=== PATIENT | male | born 1970 | race Caucasian/White ===

== ENCOUNTER 2016-11-05 21:00 | Emergency (ER) | payer SELFPAY ==
[2016-11-05 21:00] VITALS: BMI 26.1
[2016-11-05 21:35] VITALS: O2SAT 97
--- NOTE | 2016-11-05 22:45 | C.PDOC ---
History Of Present Illness Patient presents to the ER with a complaint of dizziness that worsens when he lays down or stands up. Denies fever, chills, nausea or vomiting. Time Seen by Provider: 11/05/16 22:44 Chief Complaint (Nursing): Headache History Per: Patient History/Exam Limitations: no limitations Onset/Duration Of Symptoms: Days Current Symptoms Are (Timing): Still Present Severity: None Pain Scale Rating Of: 0 Preceeding Symptoms: None Associated Symptoms: denies: Nausea, Vomiting, Other (Fever, chills) Recent travel outside of the [place]: No Past Medical History Reviewed: Historical Data, Nursing Documentation, Vital Signs Vital Signs: Last Vital Signs Temp 98.5 F 11/05/16 21:31 Pulse 69 11/05/16 21:31 Resp 20 11/05/16 21:31 BP 129/88 11/05/16 21:31 Pulse Ox 97 11/05/16 23:11 - Medical History PMH: Gastritis, GERD Surgical History: Endoscopy - [facility] Procedures COLONOSCOPY (10/11/12) Family History: States: No Known Family Hx - Social History Hx Tobacco Use: No Hx Alcohol Use: Yes Hx Substance Use: No - Immunization History Hx Tetanus Toxoid Vaccination: No Hx Influenza Vaccination: No Hx Pneumococcal Vaccination: No Review Of Systems Constitutional: Negative for: Fever, Chills Gastrointestinal: Negative for: Nausea, Vomiting Neurological: Positive for: Dizziness Physical Exam - Physical Exam Appears: Non-toxic Skin: Warm, Dry Ear(s): Bilateral: Normal Oral Mucosa: Moist Chest: Symmetrical, No Tenderness Cardiovascular: Rhythm Regular, No Murmur Respiratory: No Rales, No Rhonchi, No Wheezing Gastrointestinal/Abdominal: Soft, No Tenderness Neurological/Psych: Oriented x3, No Romberg, Other (No tinnitus, no focal deficits.) ED Course And Treatment O2 Sat by Pulse Oximetry: 97 (Room air) Pulse Ox Interpretation: Normal Progress Note: Head CT w/o contrast ordered. Antivert administered. Reevaluation Time: 00:06 Reassessment Condition: Improved Medical Decision Making Medical Decision Making: Upon provider reevaluation patient is feeling better, is medically stable, and requires no further treatment in the ED at this time. Patient will be discharged home with Rx for antivet, zofran . Counseling was provided and all questions were answered regarding diagnosis and need for follow up with dr bailon and dr thompson. There is agreement to discharge plan. Return if symptoms persist or worsen. Disposition Counseled Patient/Family Regarding: Studies Performed, Diagnosis, Need For Followup - Disposition Referrals: Calvin Bailon MD [Staff Provider] - Camilo Thompson MD [Staff Provider] - Disposition: HOME/ ROUTINE Disposition Time: 22:44 Condition: FAIR Prescriptions: Meclizine [Antivert] 25 mg PO QID #20 tab Ondansetron ODT [Zofran ODT] 1 odt PO BID PRN #6 odt PRN Reason: Nausea/Vomiting Instructions: Vertigo (ED), Dizziness (ED) Print Language: IRAQI - Clinical Impression Clinical Impression: Dizziness, Vertigo - Scribe Statement The provider has reviewed the documentation as recorded by the Scribjosette Coburn All medical record entries made by the Scribe were at my direction and personally dictated by me. I have reviewed the chart and agree that the record accurately reflects my personal performance of the history, physical exam, medical decision making, and the department course for this patient. I have also personally directed, reviewed, and agree with the discharge instructions and disposition.
[2016-11-06 00:20] VITALS: BP 132/82; PULSE 78; RESP 16; TEMP 98.2
--- NOTE | 2016-11-06 10:25 | CT ---
PROCEDURE: CT HEAD WITHOUT CONTRAST. HISTORY: dizziness COMPARISON: None available. TECHNIQUE: Axial computed tomography images were obtained through the head/brain without intravenous contrast. Radiation dose: Total exam DLP = 757.43 mGy-cm. This CT exam was performed using one or more of the following dose reduction techniques: Automated exposure control, adjustment of the mA and/or kV according to patient size, and/or use of iterative reconstruction technique. FINDINGS: HEMORRHAGE: No intracranial hemorrhage. BRAIN: No mass effect or edema. No atrophy or chronic microvascular ischemic changes. VENTRICLES: Unremarkable. No hydrocephalus. CALVARIUM: Unremarkable. PARANASAL SINUSES: Mild mucosal thickening seen within the ethmoid and frontal sinuses. Minimal mucosal thickening sphenoid sinus. MASTOID AIR CELLS: Unremarkable as visualized. No inflammatory changes. OTHER FINDINGS: None. IMPRESSION: No acute intracranial hemorrhage.
== END 2016-11-06 00:23 | disposition home or self-care (01) ==
LOC: C.ER 21:00
DX: R42 Dizziness and giddiness (principal)

== ENCOUNTER 2017-11-26 22:20 | Emergency (ER) | payer OTHER ==
[2017-11-26 22:20] VITALS: BMI 26.1
--- NOTE | 2017-11-26 23:00 | C.PDOC ---
Time Seen by Provider: 11/26/17 22:42 Chief Complaint (Nursing): Abdominal Pain Past Medical History Vital Signs: Last Vital Signs Temp 98.4 F 11/26/17 22:23 Pulse 65 11/26/17 22:23 Resp 16 11/26/17 22:23 BP 143/91 H 11/26/17 22:23 Pulse Ox 98 11/26/17 22:23 - Medical History PMH: Gastritis, GERD Denies: Chronic Kidney Disease Surgical History: Endoscopy - [facility] Procedures COLONOSCOPY (10/11/12) - Social History Hx Tobacco Use: No Hx Alcohol Use: Yes Hx Substance Use: No - Immunization History Hx Tetanus Toxoid Vaccination: No Hx Influenza Vaccination: No Hx Pneumococcal Vaccination: No ED Course And Treatment O2 Sat by Pulse Oximetry: 98 Disposition - Disposition
[2017-11-26] MEDS ORDERED: Aluminum Hydroxide/Magnesium Hydroxide Susp (30 mL) PO STA (23:23)
[2017-11-26] MEDS ORDERED: Alum-Mag Hydrox-Simethicone Susp (30 mL) ONE (23:37)
[2017-11-26] MEDS ORDERED: Alum-Mag Hydrox-Simethicone Susp (30 mL) PO STA (23:43)
[2017-11-26 23:49] LABS: BASO # 0.1 K/uL (0.0-0.2); BASO % 0.9 % (0.0-2.0); EOS # 0.3 K/uL (0.0-0.7); EOS % 5.6 % (0.0-4.0); HEMOGLOBIN 14.5 g/dL (12.0-18.0); LYMPH # 2.6 K/uL (1.0-4.3); LYMPH % 44.6 % (20.0-40.0); MEAN CELL VOLUME 81.5 fL (80.0-94.0); MEAN CORPUSCULAR HEMOGLOBIN 28.5 pg (27.0-31.0); MEAN PLATELET VOLUME 9.7 fL (7.2-11.7); MONO # 0.6 K/uL (0.0-0.8); MONO % 9.3 % (0.0-10.0); NEUT # 2.3 K/uL (1.8-7.0); NEUT % 39.6 % (50.0-75.0); RBC 5.09 Mil/uL (4.40-5.90); WHITE BLOOD COUNT 5.9 K/uL (4.8-10.8)
[2017-11-26 23:52] LABS: URINE BACTERIA RARE (<OCC); URINE BILIRUBIN NEGATIVE (NEGATIVE); URINE BLOOD NEGATIVE (NEGATIVE); URINE CLARITY Clear (Clear); URINE COLOR Straw (YELLOW); URINE GLUCOSE (UA) NORMAL (Normal); URINE LEUKOCYTE ESTERASE NEG Leu/uL (Negative); URINE PROTEIN NEGATIVE (NEGATIVE); URINE UROBILINOGEN NORMAL mg/dL (0.2-1.0)
[2017-11-26 23:57] LABS: INR 1.1; PROTHROMBIN TIME 12.5 SECONDS (9.7-12.2)
--- NOTE | 2017-11-27 | C.PDOC ---
History Of Present Illness 47 year old male presents to the ED c/o intermittent abdominal pain associated with nausea and vomiting for the past 3 weeks. Patient states his pain radiates towards his chest and throat. Patient describes his pain as "burning" and reports he has not seen a doctor in the past 2 years. Patient denies PMHx, weakness, numbness, diarrhea. Time Seen by Provider: 11/26/17 22:42 Chief Complaint (Nursing): Abdominal Pain History Per: Patient History/Exam Limitations: no limitations Onset/Duration Of Symptoms: Days Current Symptoms Are (Timing): Still Present Location Of Pain/Discomfort: Epigastric Radiation Of Pain To:: Chest Quality Of Discomfort: Burning Associated Symptoms: Nausea, Vomiting, Chest Pain. denies: Diarrhea, Urinary Symptoms Last Bowel Movement: Today Recent travel outside of the [place]: No Additional History Per: Patient Past Medical History Reviewed: Historical Data, Nursing Documentation, Vital Signs Vital Signs: Last Vital Signs Temp 98.5 F 11/27/17 00:49 Pulse 62 11/27/17 00:49 Resp 15 11/27/17 00:49 BP 128/79 11/27/17 00:49 Pulse Ox 98 11/27/17 04:37 - Medical History PMH: Gastritis, GERD Denies: Chronic Kidney Disease Surgical History: Endoscopy - [facility] Procedures COLONOSCOPY (10/11/12) Family History: States: Unknown Family Hx - Social History Hx Tobacco Use: No Hx Alcohol Use: Yes Hx Substance Use: No - Immunization History Hx Tetanus Toxoid Vaccination: No Hx Influenza Vaccination: No Hx Pneumococcal Vaccination: No Review Of Systems Constitutional: Negative for: Fever, Chills Cardiovascular: Positive for: Chest Pain. Negative for: Palpitations Respiratory: Negative for: Cough, Shortness of Breath Gastrointestinal: Positive for: Nausea, Vomiting, Abdominal Pain Musculoskeletal: Negative for: Back Pain Skin: Negative for: Rash Physical Exam - Physical Exam Appears: Non-toxic, No Acute Distress Skin: Normal Color, Warm, Dry Head: Atraumatic, Normacephalic Eye(s): bilateral: Normal Inspection Oral Mucosa: Moist Neck: Normal ROM, Supple Chest: Symmetrical Cardiovascular: Rhythm Regular Respiratory: Normal Breath Sounds, No Rales, No Rhonchi, No Wheezing Gastrointestinal/Abdominal: Soft, No Tenderness, No Guarding, No Rebound Extremity: Normal ROM, No Tenderness, No Swelling Neurological/Psych: Oriented x3, Normal Speech Gait: Steady ED Course And Treatment - Laboratory Results Result Diagrams: 11/26/17 23:47 11/26/17 23:47 ECG: Interpreted By Me, Viewed By Me ECG Rhythm: Sinus Rhythm ECG Interpretation: Normal Interpretation Of ECG: No acute changes, elevated T in lead V3 Rate From EC (BPM) O2 Sat by Pulse Oximetry: 98 - CT Scan/US CT neck soft tissue Other Rad Studies (CT/US): Read By Radiologist, Radiology Report Reviewed CT/US Interpretation: Name: JAYDE BONILLA Age: 47Years M Date: 2017. Requesting Physician: Lory Cannon PA-C : 1970. [facility] Procedure Ordered As Accession Number of. Images. CT NECK SOFT TISSUE. W. CT NECK SOFT TISSUE W. CONTRAST. [id number]. J. 320. Provided Clinical History: pain, r/o esophageal abnormalities. EXAM: CT Neck With Intravenous Contrast. CLINICAL HISTORY: 47 years old, male; Pain; Neck pain and throat pain; Additional info: Pain, R/O esophageal. abnormalities. TECHNIQUE: Axial computed tomography images of the neck with intravenous contrast. All CT scans at this. facility use at least one of these dose optimization techniques: automated exposure control; mA. and/or kV adjustment per patient size (includes targeted exams where dose is matched to clinical. indication); or iterative reconstruction. 320 images are submitted. Coronal and sagittal reformatted images were created and reviewed. COMPARISON: No relevant prior studies available. FINDINGS: Oropharynx: Unremarkable. No significant tonsillar enlargement. No peritonsillar abscess. Hypopharynx: Unremarkable. Larynx: Unremarkable. Normal epiglottis. Trachea: Unremarkable. Retropharyngeal space: Unremarkable. Submandibular/parotid glands: Unremarkable. Glands are normal in size. Thyroid: Mild prominence of thyroid gland. Bones/joints: No acute fracture. Soft tissues: Unremarkable. Vasculature: No acute findings. Lymph nodes: Submental lymph nodes. Bilateral cervical chain lymph nodes. Sinuses: Mild patchy sinus disease. Orbits: The globe and lens are intact. Lung apices: Unremarkable. IMPRESSION: JAYDE BONILLA | Preliminary Radiology. Report. CONFIDENTIALITY STATEMENT. This report is intended only for the use of the referring physician, and only in accordance with law, If you received this in error, call [phone]. Page 2 of 2. No acute findings. Thank you for allowing us to participate in the care of your patient. Dictated and Authenticated by: Niall Reyes MD. 11/27/2017 3:22 AM Eastern Time ( [place] & [place]) CT chest Other Rad Studies (CT/US): Read By Radiologist, Radiology Report Reviewed CT/US Interpretation: Name: JAYDE BONILLA Age: 47Years M Date: 2017. Requesting Physician: Lory Cannon PA-C : 1970. [facility] Procedure Ordered As Accession Number of Images. CT CHEST W CT CHEST W CONTRAST [id number]. Provided Clinical History: chest/neck burning, r/ o esophageal stricture. EXAM: CT Chest With Intravenous Contrast. CLINICAL HISTORY: 47 years old, male; Pain; Chest pain; Additional info: Chest/neck burning, R/O esophageal stricture. TECHNIQUE: Axial computed tomography images of the chest with intravenous contrast. All CT scans at this. facility use at least one of these dose optimization techniques: automated exposure control; mA. and/or kV adjustment per patient size (includes targeted exams where dose is matched to clinical. indication); or iterative reconstruction. 619 images are submitted.Sagittal , axial and coronal MPR. reformatted images are submitted. Axial images are submitted in high resolution protocol reformatted. images in lung windows. COMPARISON: CR - CHEST ONE VIEW 12:47. FINDINGS: Lungs: Bibasilar trace hazy patchy nonspecific infiltrates are present, consistent with atelectasis or. pneumonia.Mild parabronchial cuffing, which can be seen with bronchitis, reactive airway disease or. viral pneumonitis versus mild failure. The visualized portions of major airways are patent. Pleural space: Unremarkable. No pneumothorax. No significant effusion. Heart: Unremarkable. No cardiomegaly. No significant pericardial effusion. Mediastinum: Nonspecific esophageal wall thickening which could be due to underdistention versus. nonspecific esophagitis. If clinical concern for stricture remains gastroenterology evaluation can be. helpful. Small hiatal hernia. Bones/joints: Unremarkable. No acute fracture. No dislocation. Soft tissues: Unremarkable. Vasculature: Bovine aortic arch. No thoracic aortic aneurysm. Lymph nodes: Unremarkable. No enlarged lymph nodes. IMPRESSION: 1. Bibasilar trace hazy patchy nonspecific infiltrates are present, consistent with atelectasis or. pneumonia.Mild parabronchial cuffing, which can be seen with bronchitis, reactive airway disease or. viral pneumonitis versus mild failure. JAYDE BONILLA | Preliminary Radiology. Report. CONFIDENTIALITY STATEMENT. This report is intended only for the use of the referring physician, and only in accordance with law, If you received this in error, call [phone]. Page 2 of 2. 2. Nonspecific esophageal wall thickening which could be due to underdistention versus nonspecific. esophagitis. If clinical concern for stricture remains gastroenterology evaluation can be helpful. Thank you for allowing us to participate in the care of your patient. Dictated and Authenticated by: Niall Reyes MD. 3:26 AM Eastern Time ([place] & [place]) Progress Note: Plan: - EKG. - CXR. - Labs. - Maalox 30 ml PO. - Protonix 40 mg IVP. - UA. Plan was to keep patient for observation. Hospitalist search engine optimization analyst was called at 00:30. came down to ED, evaluated patient and requested chest and neck CT with IV contrast. CT report came back at 3:25 am. Case was again discussed with who sts he will review CT by himself and will call back. 4:05 am. Case was again discussed with who sts he still reviewing CT and will come down to ED. Disposition - Disposition Referrals: [facility] at [facility] [Outside] Disposition: HOME/ ROUTINE Disposition Time: 04:41 Condition: STABLE Additional Instructions: Follow up with PMD within 1-2 days. Return to ED if feel worse. Prescriptions: Omeprazole 40 mg PO DAILY #30 capsule. Instructions: Acid Reflux (Gastroesophageal Reflux Disease), Adult (DC) Forms: yeppt (H[place] Konger) - Clinical Impression Clinical Impression: GERD (gastroesophageal reflux disease) - PA / HOME ENERGY AUDITOR / Resident Statement MD/DO has reviewed & agrees with the documentation as recorded. - Scribe Statement The provider has reviewed the documentation as recorded by the Scribe Jason Felix All medical record entries made by the Scribe were at my direction and personally dictated by me. I have reviewed the chart and agree that the record accurately reflects my personal performance of the history, physical exam, medical decision making, and the department course for this patient. I have also personally directed, reviewed, and agree with the discharge instructions and disposition.
[2017-11-27 00:01] LABS: ALB/GLOB RATIO 1.2 (1.0-2.1); ALBUMIN 4.1 g/dL (3.5-5.0); ALT/SGPT 56 U/L (21-72); AST/SGOT 28 U/L (17-59); BLOOD UREA NITROGEN 17 mg/dL (9-20); CALCIUM 8.8 mg/dl (8.6-10.4); GFR AFRICAN-AMERICAN > 60; GFR NON-AFRICAN AMERICAN > 60; LIPASE 80 U/L (23-300)
[2017-11-27 00:13] LABS: CK-MB 1.13 ng/mL (0.0-3.38)
[2017-11-27] MEDS ORDERED: Iodixanol 320 MG/ML 100 ML BOTTLE IV ONE (01:42)
--- NOTE | 2017-11-27 04:23 | CP.PCM.CON ---
<Kasia Damon - Last Filed: 11/27/17 04:29> History of Present Illness - History of Present Illness History of Present Illness: Consult Patient is a 47 year old male with a history of GERD/gastritis, who presents to the ED with complaints of epigastric abdominal pain that radiates up to the chest and throat/neck. He has a 2 year history of gerd/gastritis and has had a work up with GI, Dr. Larios in the past. Patient says his discomfort has increased in intensity over the past 2-3 weeks. He admits to increasing milk and acidic food consumption recently. He says his symptoms increase at night, he has indigestion and belching several hours after a meal, and occasionally has an acidic taste in his mouth. He takes mylanta which helps relieve his symptoms. Patient otherwise feels well and denies remaining review of systems. PMD: none PMHx: gerd/gastritis SurgHx: none FamHx: Mother- HTN, Father- DM SocHx: denies tobacco and drug use; social etoh; lives with partner, Keira, in [place]. Works in [employer] Allergies: NKDA Medications: mylanta prn Review of Systems - Constitutional Constitutional: absent: Chills, Fever, Headache - EENT Ears: absent: Dizziness Additional comments: Acidic taste in mouth - Cardiovascular Cardiovascular: absent: Chest Pain, Chest Pain with Activity, Dyspnea, Leg Edema , Palpitations, Rapid Heart Rate - Respiratory Respiratory: absent: Cough, Dyspnea - Gastrointestinal Gastrointestinal: Abdominal Pain (epigastris radiating to chest and throat), Belching, Dyspepsia, Heartburn. absent: Constipation, Diarrhea, Nausea, Vomiting - Genitourinary Genitourinary: absent: Dysuria - Neurological Neurological: absent: Dizziness, Headaches Past Patient History - Infectious Disease Hx of Infectious Diseases: None - Past Medical History & Family History Past Medical History?: No - Past Social History Smoking Status: Never Smoked - CARDIAC Hx Cardiac Disorders: No - PULMONARY Hx Respiratory Disorders: No - NEUROLOGICAL Hx Neurological Disorder: No - HEENT Hx HEENT Problems: No - RENAL Hx Chronic Kidney Disease: No - ENDOCRINE/METABOLIC Hx Endocrine Disorders: No - HEMATOLOGICAL/ONCOLOGICAL Hx Blood Disorders: No - INTEGUMENTARY Hx Dermatological Problems: No - MUSCULOSKELETAL/RHEUMATOLOGICAL Hx Musculoskeletal Disorders: No - GASTROINTESTINAL Hx Gastritis: Yes - GENITOURINARY/GYNECOLOGICAL Hx Genitourinary Disorders: No - PSYCHIATRIC Hx Substance Use: No - SURGICAL HISTORY Hx Surgeries: Yes - ANESTHESIA Hx Anesthesia: Yes Hx Anesthesia Reactions: No Meds Allergies/Adverse Reactions: Allergies Allergy/AdvReac Type Severity Reaction Status Date / Time No Known Allergies Allergy Verified 11/26/17 22:25 Physical Exam - Constitutional Appears: No Acute Distress - Head Exam Head Exam: ATRAUMATIC, NORMAL INSPECTION, NORMOCEPHALIC - Eye Exam Eye Exam: EOMI, Normal appearance, PERRL - ENT Exam ENT Exam: Mucous Membranes Moist - Respiratory Exam Respiratory Exam: Clear to Auscultation Bilateral, NORMAL BREATHING PATTERN. absent: Rales, Rhonchi, Wheezes, Respiratory Distress - Cardiovascular Exam Cardiovascular Exam: REGULAR RHYTHM, +S1, +S2 - GI/Abdominal Exam GI & Abdominal Exam: Normal Bowel Sounds, Soft. absent: Tenderness - Extremities Exam Extremities exam: Positive for: normal inspection, pedal pulses present. Negative for: pedal edema, tenderness - Neurological Exam Neurological exam: Alert, Oriented x3 - Psychiatric Exam Psychiatric exam: Normal Affect, Normal Mood - Skin Skin Exam: Dry, Intact, Normal Color, Warm Results - Vital Signs Recent Vital Signs: Last Vital Signs Temp 98.5 F 11/27/17 00:49 Pulse 62 11/27/17 00:49 Resp 15 11/27/17 00:49 BP 128/79 11/27/17 00:49 Pulse Ox 98 11/27/17 04:15 - Labs Result Diagrams: 11/26/17 23:47 11/26/17 23:47 Labs: Laboratory Results - last 24 hr 11/26/17 11/26/17 11/26/17 23:47 23:47 23:47 WBC 5.9 RBC 5.09 Hgb 14.5 Hct 41.5 MCV 81.5 MCH 28.5 MCHC 35.0 RDW 13.0 Plt Count 189 MPV 9.7 Neut % (Auto) 39.6 L Lymph % (Auto) 44.6 H [place] % (Auto) 9.3 Eos % (Auto) 5.6 H Baso % (Auto) 0.9 Neut # (Auto) 2.3 Lymph # (Auto) 2.6 [place] # (Auto) 0.6 Eos # (Auto) 0.3 Baso # (Auto) 0.1 PT 12.5 H INR 1.1 APTT 35 H Sodium 142 Potassium 3.7 Chloride 103 Carbon Dioxide 28 Anion Gap 14 BUN 17 Creatinine 1.0 Est GFR ( Amer) > 60 Est GFR (Non-Af Amer) > 60 Random Glucose 97 Calcium 8.8 Total Bilirubin 0.9 AST 28 ALT 56 Alkaline Phosphatase 111 Total Creatine Kinase 142 CK-MB (Mass) 1.13 Troponin I < 0.0120 Total Protein 7.5 Albumin 4.1 Globulin 3.4 Albumin/Globulin Ratio 1.2 Lipase 80 Urine Color Urine Clarity Urine pH Ur Specific [place] Urine Protein Urine Glucose (UA) Urine Ketones Urine Blood Urine Nitrate Urine Bilirubin Urine Urobilinogen Ur Leukocyte Esterase Urine WBC (Auto) Ur Transition Epith Cell Urine Bacteria 11/26/17 23:47 WBC RBC Hgb Hct MCV MCH MCHC RDW Plt Count MPV Neut % (Auto) Lymph % (Auto) [place] % (Auto) Eos % (Auto) Baso % (Auto) Neut # (Auto) Lymph # (Auto) [place] # (Auto) Eos # (Auto) Baso # (Auto) PT INR APTT Sodium Potassium Chloride Carbon Dioxide Anion Gap BUN Creatinine Est GFR ( Amer) Est GFR (Non-Af Amer) Random Glucose Calcium Total Bilirubin AST ALT Alkaline Phosphatase Total Creatine Kinase CK-MB (Mass) Troponin I Total Protein Albumin Globulin Albumin/Globulin Ratio Lipase Urine Color Straw Urine Clarity Clear Urine pH 6.0 Ur Specific [place] 1.011 Urine Protein Negative Urine Glucose (UA) Normal Urine Ketones Negative Urine Blood Negative Urine Nitrate Negative Urine Bilirubin Negative Urine Urobilinogen Normal Ur Leukocyte Esterase Neg Urine WBC (Auto) < 1 Ur Transition Epith Cell < 1 Urine Bacteria Rare Assessment & Plan (1) GERD (gastroesophageal reflux disease) Assessment and Plan: Patient should be discharged with a prescription for a PPI and should follow up with PMD and GI upon discharge from ED. Chest/Neck CT done- no acute findings. Status: Acute <Anjum Martin P - Last Filed: 11/27/17 06:20> Results - Vital Signs Recent Vital Signs: Last Vital Signs Temp 98.2 F 11/27/17 04:53 Pulse 64 11/27/17 04:53 Resp 20 11/27/17 04:53 BP 109/60 11/27/17 04:53 Pulse Ox 99 11/27/17 04:53 - Labs Result Diagrams: 11/26/17 23:47 11/26/17 23:47 Labs: Laboratory Results - last 24 hr 11/26/17 11/26/17 11/26/17 23:47 23:47 23:47 WBC 5.9 RBC 5.09 Hgb 14.5 Hct 41.5 MCV 81.5 MCH 28.5 MCHC 35.0 RDW 13.0 Plt Count 189 MPV 9.7 Neut % (Auto) 39.6 L Lymph % (Auto) 44.6 H [place] % (Auto) 9.3 Eos % (Auto) 5.6 H Baso % (Auto) 0.9 Neut # (Auto) 2.3 Lymph # (Auto) 2.6 [place] # (Auto) 0.6 Eos # (Auto) 0.3 Baso # (Auto) 0.1 PT 12.5 H INR 1.1 APTT 35 H Sodium 142 Potassium 3.7 Chloride 103 Carbon Dioxide 28 Anion Gap 14 BUN 17 Creatinine 1.0 Est GFR ( Amer) > 60 Est GFR (Non-Af Amer) > 60 Random Glucose 97 Calcium 8.8 Total Bilirubin 0.9 AST 28 ALT 56 Alkaline Phosphatase 111 Total Creatine Kinase 142 CK-MB (Mass) 1.13 Troponin I < 0.0120 Total Protein 7.5 Albumin 4.1 Globulin 3.4 Albumin/Globulin Ratio 1.2 Lipase 80 Urine Color Urine Clarity Urine pH Ur Specific [place] Urine Protein Urine Glucose (UA) Urine Ketones Urine Blood Urine Nitrate Urine Bilirubin Urine Urobilinogen Ur Leukocyte Esterase Urine WBC (Auto) Ur Transition Epith Cell Urine Bacteria 11/26/17 23:47 WBC RBC Hgb Hct MCV MCH MCHC RDW Plt Count MPV Neut % (Auto) Lymph % (Auto) [place] % (Auto) Eos % (Auto) Baso % (Auto) Neut # (Auto) Lymph # (Auto) [place] # (Auto) Eos # (Auto) Baso # (Auto) PT INR APTT Sodium Potassium Chloride Carbon Dioxide Anion Gap BUN Creatinine Est GFR ( Amer) Est GFR (Non-Af Amer) Random Glucose Calcium Total Bilirubin AST ALT Alkaline Phosphatase Total Creatine Kinase CK-MB (Mass) Troponin I Total Protein Albumin Globulin Albumin/Globulin Ratio Lipase Urine Color Straw Urine Clarity Clear Urine pH 6.0 Ur Specific [place] 1.011 Urine Protein Negative Urine Glucose (UA) Normal Urine Ketones Negative Urine Blood Negative Urine Nitrate Negative Urine Bilirubin Negative Urine Urobilinogen Normal Ur Leukocyte Esterase Neg Urine WBC (Auto) < 1 Ur Transition Epith Cell < 1 Urine Bacteria Rare Attending/Attestation - Attestation I have personally seen and examined this patient.: Yes I have fully participated in the care of the patient.: Yes I have reviewed all pertinent clinical information: Yes Notes (Text): 11/27/17 06:05 Clinically GERD, with prior history and endoscopy 2 yrs back with non compliance with PPI, recurrence of symptoms for 2-3 wks with gradual worsening, no exertional symptoms as patient is active in work out and soccer, with no complains, normal ekg during symptoms, negative troponin. CT done to r/o aclasia and obstruction due to h/o regurgitation of food > 12 hr old, which shows mild aspiration pneumonitis, esophagitis. Recommend to start PPI regularly for > 1-2 months, arrange primary care and gi f/u as outpatient meanwhile, come to er incase of worsening. D/w er.
[2017-11-27 04:55] VITALS: BP 109/60; PULSE 64; RESP 20; TEMP 98.2
[2017-11-27 06:35] VITALS: O2SAT 98
--- NOTE | 2017-11-27 11:05 | CT ---
PROCEDURE: CT NECK WITH CONTRAST HISTORY: pain, r/o esophageal abnormalities COMPARISON: None TECHNIQUE: CT of the neck with intravenous contrast. Coronal and sagittal reformats generated. Intravenous contrast dose: 100 mL Visipaque Radiation dose: DLP 357.68 mGy-cm This CT exam was performed using one or more of the following dose reduction techniques: Automated exposure control, adjustment of the mA and/or kV according to patient size, and/or use of iterative reconstruction technique. FINDINGS: NASOPHARYNX: Within normal limits. SUPRAHYOID NECK: There is no mass or abnormal enhancement in the oropharynx, oral cavity, parapharyngeal space and retropharyngeal space. INFRAHYOID NECK: There is no mass or abnormal enhancement in the larynx, hypopharynx, and supraglottic space. Vocal cords intact. MASS: None. GLANDS: Parotid and submandibular glands unremarkable. Normal size thyroid gland, without nodule. LYMPH NODES: Prominent bilateral cervical chain lymph nodes are likely reactive in etiology. CERVICAL SPINE: No fracture or focal lesion. VASCULAR STRUCTURES: Unremarkable. OTHER FINDINGS: None. IMPRESSION: No mass or abnormal enhancement in the soft tissues of the neck. Please note evaluation of the esophagus is limited on CT examination allowing for this, no evidence for esophageal dilatation or bulky mass. A preliminary report was provided by [facility].
--- NOTE | 2017-11-27 11:13 | CT ---
PROCEDURE: CT Chest with contrast HISTORY: chest/neck burning, r/o esophageal stricture COMPARISON: None. TECHNIQUE: Contiguous axial images were obtained through the chest with intravenous contrast enhancement. Sagittal and coronal reconstructions were performed. IV contrast: 100 mL Visipaque Radiation dose (DLP): 615.75 mGy-cm. This CT exam was performed using one or more of the following dose reduction techniques: Automated exposure control, adjustment of the mA and/or kV according to patient size, and/or use of iterative reconstruction technique. FINDINGS: LUNGS: The lungs are well inflated. There is dependent atelectasis in the posterior lungs. No suspicious nodule, mass or consolidation. There are no endobronchial lesions. MEDIASTINUM: The aorta is normal in caliber. No aneurysm or dissection. Normal sized heart. Main pulmonary artery unremarkable. No vascular congestion. No lymphadenopathy. There is apparent mild thickening of the esophageal wall. PLEURA: No pleural fluid. No pneumothorax. BONES: No fracture. No destructive lesion. Within normal limits for the patient's age. UPPER ABDOMEN: No cholelithiasis. The adrenal glands are normal. Few small low-attenuation lesions were in the right hepatic lobe are too small to characterize by CT criteria. OTHER FINDINGS: None. IMPRESSION: No acute findings. Apparent mild thickening of the esophageal wall is nonspecific and could be related to underdistention however nonspecific esophagitis is also a consideration. If clinically indicated, correlation with EGD may be performed. A preliminary report was provided by [facility].
--- NOTE | 2017-11-27 12:45 | RAD ---
PROCEDURE: CHEST RADIOGRAPH, 1 VIEW HISTORY: epigastric pain COMPARISON: 09/14/2015. FINDINGS: LUNGS: The lungs are well inflated and clear. PLEURA: No pneumothorax or pleural fluid seen. CARDIOVASCULAR: Normal. OSSEOUS STRUCTURES: No significant abnormalities. VISUALIZED UPPER ABDOMEN: Normal. OTHER FINDINGS: None. IMPRESSION: No active pulmonary disease.
--- NOTE | 2017-11-30 22:36 | CARD ---
APPROVED REPORT EKG Measurement Heart [id number] <Conclusion> Normal sinus rhythm Normal ECG
== END 2017-11-27 04:55 | disposition home or self-care (01) ==
LOC: C.ER 22:20
DX: K21.9 Gastro-esophageal reflux disease without esophagitis (principal)
CPT/HCPCS: 70491; 71045; 71260; 80053; 81001; 82550; 82553; 83690; 84484; 85025; 85610; 85730; 93005; 96374; 99285; C9113; Q9967

== ENCOUNTER 2018-03-15 21:48 | Emergency (ER) | payer OTHER ==
[2018-03-15 21:48] VITALS: BMI 26.1
[2018-03-15 22:02] VITALS: BP 151/89; PULSE 81; RESP 19; TEMP 99.3; O2SAT 97
--- NOTE | 2018-03-15 22:12 | C.PDOC ---
History Of Present Illness 48 year old male complains of itchy rash to penile and genital area for 3 weeks. He plays soccer and has had fungl infections in the past. He used OTC antifungal cream with no relief. Time Seen by Provider: 03/15/18 22:06 Chief Complaint (Nursing): Male Genitourinary History Per: Patient History/Exam Limitations: no limitations Onset/Duration Of Symptoms: Days Recent travel outside of the [place]: No Additional History Per: Patient Past Medical History Reviewed: Historical Data, Nursing Documentation, Vital Signs Vital Signs: Last Vital Signs Temp 99.3 F 03/15/18 21:59 Pulse 81 03/15/18 21:59 Resp 19 03/15/18 21:59 BP 151/89 H 03/15/18 21:59 Pulse Ox 97 03/15/18 21:59 - Medical History PMH: Gastritis, GERD Denies: Chronic Kidney Disease Surgical History: Endoscopy - [facility] Procedures COLONOSCOPY (10/11/12) Family History: States: Unknown Family Hx - Social History Hx Tobacco Use: No Hx Alcohol Use: No Hx Substance Use: No - Immunization History Hx Tetanus Toxoid Vaccination: No Hx Influenza Vaccination: No Hx Pneumococcal Vaccination: No Review Of Systems Constitutional: Negative for: Fever, Chills Cardiovascular: Negative for: Chest Pain Gastrointestinal: Negative for: Nausea, Vomiting, Abdominal Pain Genitourinary: Positive for: Rash. Negative for: Dysuria, Hematuria Neurological: Negative for: Weakness, Numbness Physical Exam - Physical Exam Appears: Non-toxic, No Acute Distress Skin: Normal Color, Warm, Dry Head: Atraumatic, Normacephalic Eye(s): bilateral: Normal Inspection Chest: Symmetrical Respiratory: No Wheezing Male Genital: No Inguinal Tenderness, No Scrotal Swelling, Circumcised, Other (penile shaft and scrotal area with erythematous well demarcated rash and white film. No vesicles) Extremity: Normal ROM Neurological/Psych: Oriented x3, Normal Speech Gait: Steady ED Course And Treatment O2 Sat by Pulse Oximetry: 97 (ON RA) Pulse Ox Interpretation: Normal Medical Decision Making Medical Decision Making: Impression: Tinea cruris Recommend keeping area dry and changing undergarments 2x daily. Antifungal cream prescribed Disposition Counseled Patient/Family Regarding: Need For Followup, Rx Given - Disposition Disposition: HOME/ ROUTINE Disposition Time: 22:25 Condition: GOOD Additional Instructions: applica rachel jewell al julia Prescriptions: Terbinafine HCl [Lamisil At] 30 gm TP BID #1 cream..g. Instructions: Jock Itch (DC) Forms: [facility] (Danish) Print Language: AMHARIC - POA Present On Arrival: None - Clinical Impression Clinical Impression: Tinea cruris - PA / [employer] / Resident Statement MD/DO has reviewed & agrees with the documentation as recorded. - Scribe Statement The provider has reviewed the documentation as recorded by the Scribe Jason Felix All medical record entries made by the Scribe were at my direction and personally dictated by me. I have reviewed the chart and agree that the record accurately reflects my personal performance of the history, physical exam, medical decision making, and the department course for this patient. I have also personally directed, reviewed, and agree with the discharge instructions and disposition.
== END 2018-03-15 22:39 | disposition home or self-care (01) ==
LOC: C.ER 21:48
DX: B35.6 Tinea cruris (principal)